=== PATIENT | female | born 1995 | race Two or more races ===

== ENCOUNTER 2024-05-12 00:23 | Emergency (ER) | payer MEDICAID, OTHER ==
[~2024-05-12] VITALS: Ht 160 cm; Wt 52.8 kg
[2024-05-12 01:20] VITALS: PULSE 71; RESP 18; O2SAT 100
[2024-05-12] MEDS: LORazepam 0.5 MG TAB PO ONE (02:05)
[2024-05-12] MEDS: ONDANSETRON ODT 4 MG TAB PO ONE (02:06)
[2024-05-12] MEDS: MORPHINE SULFATE 4 MG/ML SYR/VIAL IM ONE ×2 (02:08→03:34)
[2024-05-12 07:40] VITALS: BP 99/57; PULSE 76; RESP 16; TEMP 98.6; O2SAT 96
== END 2024-05-12 07:39 | disposition home or self-care (01) ==
LOC: ER 00:23
DX: N81.2 Incomplete uterovaginal prolapse (principal)
CPT/HCPCS: 96372; 99285; J2270; Q0162